=== PATIENT | female | born 1965 | race Caucasian/White ===

== ENCOUNTER 2017-08-23 16:41 | Emergency (ER) | payer OTHER, MEDICAID ==
[2017-08-23] MEDS ORDERED: Ketorolac 60 MG/2 ML SDV IM ONE (17:00)
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
[2017-08-23] MEDS ORDERED: LORazepam 1 MG Tab PO ONE (17:11)
[2017-08-23] MEDS ORDERED: HYDROmorphone 2 MG/ML Syringe IM ONE (18:12)
[2017-08-23] MEDS ORDERED: Sodium Chloride 0.9% 10 ML Syringe FLUSH PRN (18:22)
[2017-08-23] MEDS ORDERED: Sodium Chloride 0.9% 2.5 ML Syringe FLUSH PRN (18:22)
[2017-08-23] MEDS ORDERED: Sodium Chloride 0.9% 1,000 ML IV ONE (18:39)
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
== END 2017-08-23 19:20 ==
LOC: MW.ED 16:41
DX: S32.011A Stable burst fracture of first lumbar vertebra, initial encounter for closed fracture (principal); V59.9XXA Occupant (driver) (passenger) of pick-up truck or van injured in unspecified traffic accident, initial encounter
CPT/HCPCS: 70450; 72131; 80053; 85025; 85610; 96372; 99285; A9270; G0480; J1885; 99284